=== PATIENT | female | born 1940 | race Caucasian/White ===

== ENCOUNTER 2016-10-07 13:15 | Outpatient (RCR) | payer MEDICARE ==
[~2016-10-07 13:15] MED LIST: ALTACE 10MG TAB10 MG PO; AMLODIPINE10 MG PO; ASPIRIN E.C. 8181 MG PO; CALCIUM600 MG PO; CARDIZEM CD 12120 MG PO; CEPHALEXIN500 M1 PO; DETROL LA4 MG PO; DETROL LA4 PO; EPA1000 MG PO; FERROUS SU325 MG/TAB PO; FLEXERIL 1010 MG/TAB PO; FOLIC ACID 11 MG/TA1 PO; FOLIC ACID 40400 MCG PO; HCTZ PO; HCTZ12.5TAB PO; IBUDONE PO; KLOR-CON 1010 MEQ PO; LASIX 40MG TABL40 MG PO; LIQUIFILM TEARS15 ML OU; LOW DOSE ASPIRI81 MG PO; MULTIPLE VITAMI1 CAP PO; NEURONTIN100 MG/CAP PO; NEURONTIN300 MG/CAP PO; NITROSTAT0.4 MG/TAB SL; NORCO 325 MG-51 TAB PO; NORVASC 10MG10 MG PO; OMEPRAZOLE DR20 MG PO; PLAVIX 75MG TAB75 MG PO; PRILOSEC 20MG20 MG PO; SENORMIN50 MG PO; SIMVASTATIN40 MG PO; TENORMIN 5050 MG/TAB PO; TYLENOL 500MG500 MG PO; VITAMIN C500 MG PO; ZOCOR 40MG40 MG PO
== END 2016-10-08 | disposition home or self-care (01) ==
LOC: WSPT
DX: M99.83 Other biomechanical lesions of lumbar region (principal); M43.16 Spondylolisthesis, lumbar region; M54.16 Radiculopathy, lumbar region
CPT/HCPCS: G8978-GP; G8979-GP

== ENCOUNTER 2016-10-14 12:55 | Outpatient (RCR) | payer MEDICARE ==
[2016-10-27] MEDS ORDERED: PRILOSEC 20MG20 MG PO (18:39)
[2016-10-27] MEDS ORDERED: LASIX 40MG TABL40 MG PO (20:15)
== END 2016-11-05 07:58 ==
LOC: WSPT 12:55
DX: M48.06 Spinal stenosis, lumbar region (principal); M43.16 Spondylolisthesis, lumbar region; M54.16 Radiculopathy, lumbar region; Z53.8 Procedure and treatment not carried out for other reasons

== ENCOUNTER 2016-10-27 17:12 | Emergency (ER) | payer MEDICARE ==
[~2016-10-27] VITALS: Ht 157.5 cm; Wt 65.5 kg
[2016-10-27 17:21] VITALS: TEMP 98.1
[2016-10-27] MEDS ORDERED: PRILOSEC 20MG20 MG PO (18:39)
[2016-10-27 18:45] LABS: BASO # 0.1 (0.0-0.2); BASO % 0.9 % (0.0-2.0); EOS # 0.9 (0.0-0.7); EOS % 13.4 % (0-4.0); GRAN # 3.3 (1.4-6.5); GRAN % 48.7 % (42.2-75.2); HEMATOCRIT 39.3 % (37.0-47.0); HEMOGLOBIN 12.7 g/dl (12.5-16.0); LYMPH # 1.9 (1.2-3.4); LYMPH % 27.7 % (20.0-51.0); MEAN CELL VOLUME 106 fl (80.0-100.0); MEAN CORPUSCULAR HEMOGLOBIN 34 pg (27.0-31.0); MEAN CORPUSCULAR HGB CONC 32 g/dl (33.0-37.0); MEAN PLATELET VOLUME 11.8 fl (7.4-10.4); MONO # 0.6 (0.1-0.6); PLATELET COUNT 49 K/mm3 (130-400); RED BLOOD COUNT 3.71 M/mm3 (4.10-5.30); REDCELL DISTRIBUTION WIDTH-CV 19.4 % (11.5-14.5); WHITE BLOOD COUNT 6.9 K/mm3 (4.8-10.8)
[2016-10-27 18:52] LABS: ADJUSTED CALCIUM 9.7 mg/dL (8.4-10.2); ALANINE AMINOTRANSFERASE 22 U/L (9-52); ALBUMIN 2.6 gm/dL (3.5-5.0); ALKALINE PHOSPHATASE 49 U/L (50-136); ANION GAP 6 mmol/L (7-16); BILIRUBIN,TOTAL 1.2 mg/dL (0.0-1.0); BLOOD UREA NITROGEN 9 mg/dL (7-17); CALCIUM 8.6 mg/dL (8.4-10.2); CARBON DIOXIDE 25 mmol/L (22-30); CHLORIDE 102 mmol/L (98-107); CREATININE, serum 0.51 mg/dL (0.52-1.25); GLUCOSE 70 mg/dL (74-106); POTASSIUM 4.8 mmol/L (3.4-5.0); SODIUM 133 mmol/L (137-145); TOTAL PROTEIN 5.5 gm/dL (6.4-8.2)
[2016-10-27 19:03] LABS: B-TYPE NATRIURETIC PEPTIDE 2750 pg/mL (0-450)
[2016-10-27 19:04] LABS: TROPONIN-I < 0.012 ng/mL (0.000-0.034)
[2016-10-27] MEDS ORDERED: LASIX 40MG TABL40 MG PO (20:15)
[2016-10-27 20:54] VITALS: BP 111/55; PULSE 99
== END 2016-10-27 20:54 | disposition home or self-care (01) ==
LOC: COL.ER 17:12
PROVIDERS: Emergency Medicine
DX: E87.70 Fluid overload, unspecified (principal); J90 Pleural effusion, not elsewhere classified; J81.1 Chronic pulmonary edema; R60.0 Localized edema; Z99.81 Dependence on supplemental oxygen; I10 Essential (primary) hypertension; Z85.118 Personal history of other malignant neoplasm of bronchus and lung; R05 Cough; I51.9 Heart disease, unspecified

== ENCOUNTER → 2016-10-27 | Outpatient (CLI) | payer MEDICARE | LOC: COL.RAD 14:53 | DX: J90 Pleural effusion, not elsewhere classified (principal); J98.4 Other disorders of lung; I25.10 Atherosclerotic heart disease of native coronary artery without angina pectoris ==